=== PATIENT | female | born 1955 | race Caucasian/White ===

== ENCOUNTER 2017-09-22 09:39 | Emergency (ER) | payer OTHER ==
[2017-09-22] MEDS: IBUPROFEN 200 MG TAB PO (10:26)
== END 2017-09-22 12:00 | disposition home or self-care (01) ==
LOC: FTE 09:39
DX: M54.5 Low back pain (principal); I10 Essential (primary) hypertension; E11.9 Type 2 diabetes mellitus without complications; Z79.84 Long term (current) use of oral hypoglycemic drugs
CPT/HCPCS: 71045; 72100; 93005; 99284-25

== ENCOUNTER 2017-10-06 10:36 | Emergency (ER) | payer OTHER ==
[2017-10-06] MEDS: HYDROCODONE/APAP (5/325) TAB PO (12:17)
== END 2017-10-06 15:08 | disposition home or self-care (01) ==
LOC: E/R 10:36
DX: S09.90XA Unspecified injury of head, initial encounter (principal); S83.92XA Sprain of unspecified site of left knee, initial encounter; S40.012A Contusion of left shoulder, initial encounter; E11.9 Type 2 diabetes mellitus without complications; W10.9XXA Fall (on) (from) unspecified stairs and steps, initial encounter; Y92.9 Unspecified place or not applicable; Z79.84 Long term (current) use of oral hypoglycemic drugs
CPT/HCPCS: 70450; 71045; 73030; 73562; 99284-25

== ENCOUNTER 2017-10-25 22:52 | Emergency (ER) | payer OTHER ==
[2017-10-26] MEDS: SOD CHLORIDE 0.9% 1,000 ML IV (01:26)
[2017-10-26] MEDS: DIPHENHYDRAMINE 50 MG INJ IV (01:27)
[2017-10-26] MEDS: METOCLOPRAMIDE 10 MG INJ IV (01:27)
[2017-10-26] MEDS: KETOROLAC 15 MG INJ IV ×2 (01:27→02:46)
[2017-10-26 02:14] LABS: ADD UMIC YES; UR ASCORBIC ACID NEGATIVE (NEGATIVE); UR BILIRUBIN (Dip) NEGATIVE (NEGATIVE); UR BLOOD (Dip) NEGATIVE (NEGATIVE); UR CLARITY CLEAR (CLEAR); UR COLOR YELLOW (YELLOW); UR GLUCOSE (Dip) NEGATIVE (NEGATIVE); UR KETONES (Dip) NEGATIVE (NEGATIVE); UR LEUKOCYTE ESTERASE (Dip) TRACE Leu/ul (NEGATIVE); UR NITRITE (Dip) NEGATIVE (NEGATIVE); UR RBC 0 /HPF (0-5); UR SPECIFIC GRAVITY (Dip) 1.013 (1.003-1.030); UR TOTAL PROTEIN (Dip) NEGATIVE (NEGATIVE); UR UROBILINOGEN (Dip) NEGATIVE (NEGATIVE); UR WBC 2 /HPF (0-5)
[2017-10-26 02:43] LABS: ADD MAN DIFF? NO
[2017-10-26 02:45] LABS: BASOPHILS % 0.4 % (0.0-2.0); EOSINOPHILS # 0.1 10^3/ul (0.0-0.5); EOSINOPHILS % 0.5 % (0.0-7.0); HEMATOCRIT 36.9 % (37.0-47.0); HEMOGLOBIN 11.8 g/dl (12.0-16.0); LYMPHOCYTES # 2.6 10^3/ul (0.8-2.9); LYMPHOCYTES % 22.6 % (15.0-51.0); MEAN CORPUSCULAR HEMOGLOBIN 29.2 pg (29.0-33.0); MEAN CORPUSCULAR VOLUME 91.3 fl (82.0-101.0); MEAN PLATELET VOLUME 9.2 fl (7.4-10.4); MONOCYTE # 0.4 10^3/ul (0.3-0.9); MONOCYTES % 3.7 % (0.0-11.0); NEUTROPHIL # 8.3 10^3/ul (1.6-7.5); NEUTROPHILS % 72.3 % (39.0-77.0); PLATELET COUNT 301 10^3/UL (140-415); RED BLOOD COUNT 4.04 10^6/ul (4.20-5.40); RED CELL DISTRIBUTION WIDTH 14.4 % (11.5-14.5)
[2017-10-26 02:45] LABS: WHITE BLOOD COUNT 11.4 10^3/ul (4.8-10.8)
[2017-10-26 03:25] LABS: ALANINE AMINOTRANSFERASE 24 IU/L (13-69); ALBUMIN/GLOBULIN RATIO 0.93; ALKALINE PHOSPHATASE 75 IU/L (42-121); ANION GAP 14 (8-16); ASPARTATE AMINO TRANSFERASE 24 IU/L (15-46); BILIRUBIN,INDIRECT 0.2 mg/dl (0-1.1); BILIRUBIN,TOTAL 0.2 mg/dl (0.2-1.3); BLOOD UREA NITROGEN 16 mg/dl (7-20); CALCIUM 9.2 mg/dl (8.4-10.2); CARBON DIOXIDE 30 mmol/L (21-31); CHLORIDE 108 mmol/L (97-110); CREATININE 0.79 mg/dl (0.44-1.00); GLUCOSE 126 mg/dl (70-220); LIPASE 254 U/L (23-300); POTASSIUM 4.4 mmol/L (3.5-5.1); SODIUM 148 mmol/L (135-144); TOTAL PROTEIN 8.3 g/dl (6.1-8.1)
== END 2017-10-26 04:32 | disposition home or self-care (01) ==
LOC: E/R 22:52
DX: N30.00 Acute cystitis without hematuria (principal); E11.9 Type 2 diabetes mellitus without complications; Z79.84 Long term (current) use of oral hypoglycemic drugs
CPT/HCPCS: 80053; 81001; 83690; 85025; 96361; 96374; 96375; 96376; 99284-25

== ENCOUNTER 2018-04-29 05:31 | Inpatient (IN) | payer OTHER ==
[2018-04-29] MEDS ORDERED: SUCCINYLCHOLINE CHLORIDE 100 MG/5 ML SYG IV (07:00)
[2018-04-29] MEDS ORDERED: GELATIN SIZE 100 SPONGE (07:10)
[2018-04-29] MEDS ORDERED: EPHEDrine SULFATE 50 MG/5 ML SYG IV ×2 (07:30→12:00)
[2018-04-29] MEDS ORDERED: IPRATROPIUM (NEB) 0.5 MG/2.5 ML AMP HHN (07:30)
[2018-04-29] MEDS ORDERED: TRIMETHOBENZAMIDE 100 MG/ML VIAL IM ×2 (07:30→12:00)
[2018-04-29] MEDS ORDERED: DIPHENHYDRAMINE 50 MG INJ IV ×2 (07:30→12:00)
[2018-04-29] MEDS ORDERED: hydrALAzine 20 MG INJ IV ×2 (07:30→12:00)
[2018-04-29] MEDS ORDERED: LABETALOL HCL 20MG INJ IV ×2 (07:30→12:00)
[2018-04-29] MEDS ORDERED: MEPERIDINE 25 MG INJ IV ×2 (07:30→12:00)
[2018-04-29] MEDS ORDERED: OXYCODONE/ACETAMINOPHEN (5/325) TAB PO ×2 (07:30)
[2018-04-29] MEDS ORDERED: ALBUTEROL 0.083% (NEB) 2.5 MG/3 ML AMP HHN (07:30)
[2018-04-29] MEDS ORDERED: HYDROmorphONE 1 MG/5 ML IV SYRINGE IV ×3 (07:30)
[2018-04-29] MEDS ORDERED: ONDANSETRON 4 MG INJ IV ×3 (07:30→12:00)
[2018-04-29] MEDS ORDERED: MIDAZOLAM 1 MG/ML 2 ML INJ IV ×2 (07:30→12:00)
[2018-04-29] MEDS ORDERED: FENTAnyl 50 MCG/ML VIAL IV ×6 (07:30→12:00)
[2018-04-29] MEDS ORDERED: NEOSTIGMINE 3 MG/3 ML SYRINGE (07:33)
[2018-04-29] MEDS ORDERED: CEFAZOLIN 1 GM INJ (07:33)
[2018-04-29] MEDS ORDERED: ROCURONIUM 50 MG INJ (07:33)
[2018-04-29] MEDS ORDERED: GLYCOPYRROLATE 0.4 MG INJ (07:33)
[2018-04-29] MEDS ORDERED: PROPOFOL 20 ML (07:33)
[2018-04-29] MEDS ORDERED: DEXAMETHASONE 4 MG/ML 1 ML INJ (07:34)
[2018-04-29] MEDS ORDERED: ONDANSETRON 4 MG INJ (07:34)
[2018-04-29] MEDS ORDERED: MIDAZOLAM 1 MG/ML 2 ML INJ (07:34)
[2018-04-29] MEDS ORDERED: FENTAnyl 50 MCG/ML VIAL ×2 (07:34→09:40)
[2018-04-29] MEDS: BUPIVACAINE 0.5% (SDV) 30 ML INJ (08:53)
[2018-04-29] MEDS: LIDOCAINE 1%/EPI 30 ML INJ (08:53)
[2018-04-29] MEDS: POLYMYXIN/BACITRACIN 1L IRRIG (08:53)
[2018-04-29] MEDS: THROMBIN 20,000 UNIT VIAL ZFS (08:53)
[2018-04-29] MEDS: HEMOSTATIC MATRIX SYG INJ (08:53)
[2018-04-29] MEDS ORDERED: POLYETHYLENE GLYCOL 17 GM PACKET PO (11:00)
[2018-04-29] MEDS ORDERED: SUGAMMADEX SODIUM 200 MG/2 ML VIAL IV ×2 (11:06→11:13)
[2018-04-29] MEDS ORDERED: CYCLOBENZAPRINE 10 MG TAB PO (11:30)
[2018-04-29] MEDS ORDERED: NALOXONE (0.4 MG/ML) INJ IV (11:30)
[2018-04-29] MEDS ORDERED: HYDROmorphONE 0.5 MG/0.5 ML SYG IV ×3 (12:00)
[2018-04-29] MEDS ORDERED: GLUCAGON 1 MG INJ IM (12:30)
[2018-04-29] MEDS ORDERED: GLUCOSE GEL 15 GRAM TUBE PO ×2 (12:30)
[2018-04-29] MEDS ORDERED: DEXTROSE 50% 50 ML SYRINGE IV ×2 (12:30)
[2018-04-29] MEDS ORDERED: GLUCOSE GEL 15 GRAM TUBE BUCCAL (12:30)
[2018-04-29] MEDS: LISINOPRIL 20 MG TAB PO (13:00)
[2018-04-29] MEDS: FERROUS SULFATE (EC) 325 MG TAB PO (13:00)
[2018-04-29] MEDS: GABAPENTIN 100 MG CAP PO ×2 (13:00→21:00)
[2018-04-29] MEDS: DULOXETINE 30 MG CAP DR PO (13:00)
[2018-04-29] MEDS ORDERED: 1/2 NS + KCL 20 MEQ 1,000 ML IV (13:00)
[2018-04-29] MEDS: LORATADINE 10 MG TAB PO (13:00)
[2018-04-29] MEDS: CHOLECALCIFEROL 1,000 UNIT TAB PO (13:00)
[2018-04-29] MEDS: HYDROmorphONE 0.5 MG/0.5 ML SYG IV (13:24)
[2018-04-29] MEDS: D5W-0.45 NACL + KCL 20 MEQ 1,000 ML IV (15:47)
[2018-04-29] MEDS: CEFAZOLIN 1 GM/50 ML (PMX) 50 ML IVPB (15:47)
[2018-04-29] MEDS: Insulin NOVOLOG SS MILD Algorithm (NPO/TPN/ENTERAL FEEDS) SC ×2 (16:58→21:11)
[2018-04-29] MEDS: metFORMIN 500 MG TAB PO (16:59)
[2018-04-29] MEDS ORDERED: INSULIN ASPART [NOVOLOG] 3 ML PEN SC (17:00)
[2018-04-29] MEDS: RANITIDINE 150 MG TAB PO (21:13)
[2018-04-29] MEDS: GABAPENTIN 300 MG CAP PO (21:13)
[2018-04-30] MEDS: CEFAZOLIN 1 GM/50 ML (PMX) 50 ML IVPB ×2 (00:05→07:29)
[2018-04-30] MEDS: D5W-0.45 NACL + KCL 20 MEQ 1,000 ML IV ×2 (00:06→10:30)
[2018-04-30] MEDS: Insulin NOVOLOG SS MILD Algorithm (NPO/TPN/ENTERAL FEEDS) SC ×6 (00:20→20:55)
[2018-04-30] MEDS: HYDROmorphONE 0.5 MG/0.5 ML SYG IV (03:52)
[2018-04-30] MEDS: PANTOPRAZOLE (EC) 40 MG TAB PO (05:23)
[2018-04-30] MEDS: LEVOTHYROXINE 100 MCG TAB PO (06:06)
[2018-04-30 06:18] LABS: ADD MAN DIFF? NO
[2018-04-30 06:22] LABS: BASOPHILS % 0.1 % (0.0-2.0); HEMATOCRIT 31.1 % (37.0-47.0); HEMOGLOBIN 10.2 g/dl (12.0-16.0); LYMPHOCYTES # 2.6 10^3/ul (0.8-2.9); LYMPHOCYTES % 14.1 % (15.0-51.0); MEAN CORPUSCULAR HEMOGLOBIN 29.6 pg (29.0-33.0); MEAN CORPUSCULAR HGB CONC 32.8 g/dl (32.0-37.0); MEAN CORPUSCULAR VOLUME 90.1 fl (82.0-101.0); MEAN PLATELET VOLUME 9.6 fl (7.4-10.4); MONOCYTE # 1.2 10^3/ul (0.3-0.9); MONOCYTES % 6.7 % (0.0-11.0); NEUTROPHIL # 14.2 10^3/ul (1.6-7.5); NEUTROPHILS % 78.4 % (39.0-77.0); PLATELET COUNT 258 10^3/UL (140-415); RED BLOOD COUNT 3.45 10^6/ul (4.20-5.40); RED CELL DISTRIBUTION WIDTH 13.2 % (11.5-14.5)
[2018-04-30 06:22] LABS: WHITE BLOOD COUNT 18.2 10^3/ul (4.8-10.8)
[2018-04-30 06:47] LABS: ANION GAP 8 (5-13); BLOOD UREA NITROGEN 11 mg/dl (7-20); CALCIUM 8.7 mg/dl (8.4-10.2); CARBON DIOXIDE 30 mmol/L (21-31); CHLORIDE 106 mmol/L (97-110); CREATININE 0.73 mg/dl (0.44-1.00); Estimated GFR > 60 mL/min (>60); GLUCOSE 143 mg/dl (70-220); POTASSIUM 4.6 mmol/L (3.5-5.1); SODIUM 144 mmol/L (135-144)
[2018-04-30] MEDS: metFORMIN 500 MG TAB PO ×2 (08:20→17:44)
[2018-04-30] MEDS: GABAPENTIN 100 MG CAP PO ×3 (08:20→20:48)
[2018-04-30] MEDS: DULOXETINE 30 MG CAP DR PO (08:20)
[2018-04-30] MEDS: LISINOPRIL 20 MG TAB PO (08:21)
[2018-04-30] MEDS: CHOLECALCIFEROL 1,000 UNIT TAB PO (08:22)
[2018-04-30] MEDS: LORATADINE 10 MG TAB PO (08:22)
[2018-04-30] MEDS: FERROUS SULFATE (EC) 325 MG TAB PO (08:22)
[2018-04-30] MEDS: DEXAMETHASONE 10 MG/ML 1 ML INJ IV (08:53)
[2018-04-30] MEDS: traMADol 50 MG TAB PO ×2 (17:15→22:07)
[2018-04-30 17:33] LABS: ADD UMIC NO; UR ASCORBIC ACID NEGATIVE (NEGATIVE); UR BILIRUBIN (Dip) NEGATIVE (NEGATIVE); UR BLOOD (Dip) NEGATIVE (NEGATIVE); UR CLARITY CLEAR (CLEAR); UR COLOR STRAW (YELLOW); UR GLUCOSE (Dip) NEGATIVE (NEGATIVE); UR KETONES (Dip) NEGATIVE (NEGATIVE); UR LEUKOCYTE ESTERASE (Dip) NEGATIVE Leu/ul (NEGATIVE); UR NITRITE (Dip) NEGATIVE (NEGATIVE); UR SPECIFIC GRAVITY (Dip) 1.008 (1.003-1.030); UR TOTAL PROTEIN (Dip) NEGATIVE (NEGATIVE); UR UROBILINOGEN (Dip) NEGATIVE (NEGATIVE)
[2018-04-30] MEDS: GABAPENTIN 300 MG CAP PO (20:48)
[2018-04-30] MEDS: RANITIDINE 150 MG TAB PO (20:48)
[2018-04-30] MEDS: CEPASTAT LOZENGE MT (21:11)
[2018-05-01] MEDS: Insulin NOVOLOG SS MILD Algorithm (NPO/TPN/ENTERAL FEEDS) SC ×6 (01:00→22:31)
[2018-05-01 05:23] LABS: ADD MAN DIFF? NO
[2018-05-01 05:25] LABS: WHITE BLOOD COUNT 17.6 10^3/ul (4.8-10.8)
[2018-05-01 05:25] LABS: BASOPHILS % 0.2 % (0.0-2.0); EOSINOPHILS % 0.1 % (0.0-7.0); HEMATOCRIT 32.3 % (37.0-47.0); HEMOGLOBIN 10.3 g/dl (12.0-16.0); LYMPHOCYTES # 3.7 10^3/ul (0.8-2.9); LYMPHOCYTES % 21.2 % (15.0-51.0); MEAN CORPUSCULAR HEMOGLOBIN 29.3 pg (29.0-33.0); MEAN CORPUSCULAR HGB CONC 31.9 g/dl (32.0-37.0); MEAN CORPUSCULAR VOLUME 91.8 fl (82.0-101.0); MEAN PLATELET VOLUME 9.5 fl (7.4-10.4); MONOCYTE # 1.2 10^3/ul (0.3-0.9); MONOCYTES % 6.6 % (0.0-11.0); NEUTROPHIL # 12.6 10^3/ul (1.6-7.5); NEUTROPHILS % 71.3 % (39.0-77.0); PLATELET COUNT 271 10^3/UL (140-415); RED BLOOD COUNT 3.52 10^6/ul (4.20-5.40); RED CELL DISTRIBUTION WIDTH 13.6 % (11.5-14.5)
[2018-05-01] MEDS: PANTOPRAZOLE (EC) 40 MG TAB PO (05:57)
[2018-05-01] MEDS: LEVOTHYROXINE 100 MCG TAB PO (05:57)
[2018-05-01] MEDS: traMADol 50 MG TAB PO (06:01)
[2018-05-01] MEDS: metFORMIN 500 MG TAB PO ×2 (08:39→17:52)
[2018-05-01] MEDS: FERROUS SULFATE (EC) 325 MG TAB PO (08:39)
[2018-05-01] MEDS: LORATADINE 10 MG TAB PO (08:39)
[2018-05-01] MEDS: DULOXETINE 30 MG CAP DR PO (08:39)
[2018-05-01] MEDS: GABAPENTIN 100 MG CAP PO ×3 (08:39→22:31)
[2018-05-01] MEDS: LISINOPRIL 20 MG TAB PO (08:40)
[2018-05-01] MEDS: CHOLECALCIFEROL 1,000 UNIT TAB PO (08:41)
[2018-05-01] MEDS: CEPASTAT LOZENGE MT (08:54)
[2018-05-01] MEDS: HYDROCODONE/APAP (10/325) TAB PO (08:54)
[2018-05-01] MEDS: RANITIDINE 150 MG TAB PO (19:39)
[2018-05-01] MEDS: GABAPENTIN 300 MG CAP PO (22:31)
[2018-05-02] MEDS: Insulin NOVOLOG SS MILD Algorithm (NPO/TPN/ENTERAL FEEDS) SC ×3 (01:00→08:21)
[2018-05-02] MEDS: LEVOTHYROXINE 100 MCG TAB PO (05:52)
[2018-05-02] MEDS: PANTOPRAZOLE (EC) 40 MG TAB PO (05:52)
[2018-05-02] MEDS: traMADol 50 MG TAB PO (05:53)
[2018-05-02] MEDS: LORATADINE 10 MG TAB PO (09:11)
[2018-05-02] MEDS: LISINOPRIL 20 MG TAB PO (09:11)
[2018-05-02] MEDS: CHOLECALCIFEROL 1,000 UNIT TAB PO (09:11)
[2018-05-02] MEDS: FERROUS SULFATE (EC) 325 MG TAB PO (09:11)
[2018-05-02] MEDS: metFORMIN 500 MG TAB PO (09:11)
[2018-05-02] MEDS: GABAPENTIN 100 MG CAP PO (09:11)
[2018-05-02] MEDS: DULOXETINE 30 MG CAP DR PO (09:11)
== END 2018-05-02 11:20 | disposition home or self-care (01) | DRG 472 ==
LOC: REC 05:31 → MS1 04-30 14:14 → ICU 11:43
PROVIDERS: Neurological Surgery
PROC: 0RG10A0 Fusion of Cervical Vertebral Joint with Interbody Fusion Device, Anterior Approach, Anterior Column, Open Approach (ICD-10-PCS; principal; 2018-04-29 07:30)
PROC: 0RT30ZZ Resection of Cervical Vertebral Disc, Open Approach (ICD-10-PCS; 2018-04-29 07:30)
PROC: 01N10ZZ Release Cervical Nerve, Open Approach (ICD-10-PCS; 2018-04-29 07:30)
DX: M48.02 Spinal stenosis, cervical region (principal); G95.9 Disease of spinal cord, unspecified; E11.9 Type 2 diabetes mellitus without complications; Z79.84 Long term (current) use of oral hypoglycemic drugs; I10 Essential (primary) hypertension; E03.9 Hypothyroidism, unspecified; K21.9 Gastro-esophageal reflux disease without esophagitis; E66.9 Obesity, unspecified; Z68.37 Body mass index [BMI] 37.0-37.9, adult; M54.12 Radiculopathy, cervical region; R13.10 Dysphagia, unspecified
CPT/HCPCS: 72040; 80048; 81003; 82962; 85025; 86850; 86900; 86901; 87081; 87086; 92526; 92610; 97110; 97116; 97162; 97530

== ENCOUNTER 2018-09-29 17:10 | Emergency (ER) | payer OTHER ==
[2018-09-29 21:13] LABS: ADD MAN DIFF? NO
[2018-09-29] MEDS: METOCLOPRAMIDE 10 MG INJ IV (21:15)
[2018-09-29 21:16] LABS: WHITE BLOOD COUNT 12.8 10^3/ul (4.8-10.8)
[2018-09-29 21:16] LABS: BASOPHIL # 0.1 10^3/ul (0.0-0.1); BASOPHILS % 0.4 % (0.0-2.0); EOSINOPHILS # 0.2 10^3/ul (0.0-0.5); EOSINOPHILS % 1.6 % (0.0-7.0); HEMATOCRIT 37.9 % (37.0-47.0); LYMPHOCYTES # 3.7 10^3/ul (0.8-2.9); MEAN CORPUSCULAR HEMOGLOBIN 28.6 pg (29.0-33.0); MEAN CORPUSCULAR HGB CONC 31.7 g/dl (32.0-37.0); MEAN CORPUSCULAR VOLUME 90.5 fl (82.0-101.0); MEAN PLATELET VOLUME 8.8 fl (7.4-10.4); MONOCYTE # 0.8 10^3/ul (0.3-0.9); MONOCYTES % 6.4 % (0.0-11.0); NEUTROPHIL # 7.9 10^3/ul (1.6-7.5); NEUTROPHILS % 61.7 % (39.0-77.0); PLATELET COUNT 301 10^3/UL (140-415); RED BLOOD COUNT 4.19 10^6/ul (4.20-5.40); RED CELL DISTRIBUTION WIDTH 14.1 % (11.5-14.5)
[2018-09-29] MEDS: KETOROLAC 30 MG INJ IV (21:16)
[2018-09-29] MEDS: DIPHENHYDRAMINE 50 MG INJ IV (21:16)
[2018-09-29] MEDS: SOD CHLORIDE 0.9% 1,000 ML IV (21:34)
[2018-09-29 21:35] LABS: PROTIME 12.3 Sec (11.9-14.9)
[2018-09-29 21:36] LABS: ANION GAP 6 (5-13); BLOOD UREA NITROGEN 14 mg/dl (7-20); CALCIUM 9.7 mg/dl (8.4-10.2); CARBON DIOXIDE 32 mmol/L (21-31); CHLORIDE 104 mmol/L (97-110); CREATININE 0.81 mg/dl (0.44-1.00); Estimated GFR > 60 mL/min (>60); GLUCOSE 122 mg/dl (70-220); PARTIAL THROMBOPLASTIN TIME 26.2 Sec (23.0-35.0); POTASSIUM 4.3 mmol/L (3.5-5.1); SODIUM 142 mmol/L (135-144)
[2018-09-29 22:49] LABS: ERYTHROCYTE SEDIMENTATION RATE 56 mm/Hr (0-30)
== END 2018-09-30 00:11 | disposition home or self-care (01) ==
LOC: FTE 09-30 00:11
DX: G43.909 Migraine, unspecified, not intractable, without status migrainosus (principal); Z79.84 Long term (current) use of oral hypoglycemic drugs
CPT/HCPCS: 36415; 70450; 80048; 85025; 85610; 85651; 85730; 96374; 96375; 99285-25